=== PATIENT | male | born 2000 | race Caucasian/White ===

== ENCOUNTER 2019-04-30 09:58 | Emergency (ER) | payer OTHER ==
[~2019-04-30] VITALS: Ht 170.2 cm; Wt 62.6 kg
[2019-04-30 09:59] VITALS: BP 105/64
[2019-04-30] MEDS ORDERED: ONDANSETRON 4 MG/2 ML VIAL IVP ONE (10:15)
[2019-04-30] MEDS ORDERED: NACL 0.9% 1,000 ML IV ONE (10:15)
--- NOTE | 2019-04-30 10:25 | NUR ---
pt arrived to ed c/o n,v,d x 2 days. no abd pain. bs present in all quads, abd soft, flat nontender. pt states, "i had about 8-10 episodes of diarrhea and i havent been able to hold food or liquids down." a & o x 4. denies fever. VSS; PATIENT POSITIONED FOR COMFORT; HOB ELEVATED; BEDRAILS UP X2; BED DOWN. ER MD MADE AWARE OF PT STATUS. nka. denies pmh.
[2019-04-30 11:01] LABS: HEMATOCRIT 47.8 % (36-52); HEMOGLOBIN 15.9 g/dL (12.0-18.0); MEAN CORPUSCULAR HEMOGLOBIN 29 pg (27-31); MEAN CORPUSCULAR HGB CONC 33 g/dL (33-37); MEAN CORPUSCULAR VOLUME 88.1 fL (80-94); PLATELET COUNT (AUTO) 217 K/uL (140-450); RED BLOOD CELL COUNT(AUTO) 5.42 MIL/uL (4.20-6.10); RED CELL DISTRIBUTION WIDTH 12.8 % (11.6-13.7)
[2019-04-30 11:08] LABS: ANION GAP 15.1 (8-16); POTASSIUM 4.1 mmol/L (3.5-5.1)
[2019-04-30 11:12] LABS: BILIRUBIN,URINE NEGATIVE (NEGATIVE); BLOOD, URINE TRACE-I (NEGATIVE); COLOR,URINE YELLOW (YELLOW); LEUKOCYTE ESTERASE ,URINE NEGATIVE (NEGATIVE); NITRITE, URINE NEGATIVE (NEGATIVE); UGLUCOSE NEGATIVE (NEGATIVE)
[2019-04-30 11:14] LABS: TOTAL BILIRUBIN 0.7 mg/dL (0.0-1.0)
[2019-04-30 11:16] LABS: APPEARANCE,URINE SLIGHTLY HAZY (CLEAR)
[2019-04-30 11:25] LABS: BASOPHILS % (MANUAL) 0 % (0-2); EOSINOPHILS % (MANUAL) 0 % (0-4); LYMPHOCYTES % (MANUAL) 6 % (20-46); MONOCYTES % (MANUAL) 3 % (5-12)
[2019-04-30 11:27] LABS: RBC,URINE 0-5 /HPF (0-5); WBC,URINE 0-5 /HPF (0-5)
--- NOTE | 2019-04-30 12:00 | NUR ---
pt discharge teaching by dr jj. prescription given for zofran for nausea, and naprosyn for pain.
[2019-04-30 12:07] VITALS: BP 105/64
== END 2019-04-30 11:59 | disposition home or self-care (01) ==
LOC: MED 09:58
DX: A08.4 Viral intestinal infection, unspecified (principal)
CPT/HCPCS: 36415; 80053; 81001; 85025; 96374; 99283; J2405; J7030